=== PATIENT | male | born 1985 | race African-American/Black ===

== ENCOUNTER 2018-09-25 13:52 | Emergency (ER) | payer SELFPAY ==
[~2018-09-25] VITALS: Ht 190.5 cm; Wt 106.6 kg
--- NOTE | 2018-09-25 14:53 | NUR ---
Patient discharged to home in stable condition. Written and verbal after care instructions given. Patient verbalizes understanding of instruction.
== END 2018-09-25 15:01 | disposition home or self-care (01) ==
LOC: ER 14:04
DX: J06.9 Acute upper respiratory infection, unspecified (principal); J30.9 Allergic rhinitis, unspecified; F17.200 Nicotine dependence, unspecified, uncomplicated; F12.90 Cannabis use, unspecified, uncomplicated
CPT/HCPCS: Z7502

== ENCOUNTER 2019-07-23 12:32 | Emergency (ER) | payer SELFPAY ==
[~2019-07-23] VITALS: Ht 190.5 cm; Wt 108.9 kg
[2019-07-23 12:38] VITALS: BP 147/89
--- NOTE | 2019-07-23 13:16 | NUR ---
Patient discharged to home in stable condition. Written and verbal after care instructions given. Patient verbalizes understanding of instruction.
== END 2019-07-23 13:16 | disposition home or self-care (01) ==
LOC: ER 12:34
DX: J06.9 Acute upper respiratory infection, unspecified (principal); F17.200 Nicotine dependence, unspecified, uncomplicated

== ENCOUNTER 2019-09-24 12:52 | Emergency (ER) | payer SELFPAY ==
[~2019-09-24] VITALS: Ht 190.5 cm; Wt 102.1 kg
[2019-09-24 12:58] VITALS: BP 129/89
[2019-09-24] MEDS ORDERED: FLUORESCEIN SODIUM OPHTH 1 EA STRIP ONE (13:06)
== END 2019-09-24 14:03 | disposition home or self-care (01) ==
LOC: ER 12:55
DX: H11.32 Conjunctival hemorrhage, left eye (principal)

== ENCOUNTER 2022-02-18 15:21 | Emergency (ER) | payer MEDICAID ==
--- NOTE | 2022-02-18 15:40 | NUR ---
called for triage not in the waiting room.
--- NOTE | 2022-02-18 15:50 | NUR ---
called for triage not in the waiting room.
--- NOTE | 2022-02-18 16:01 | NUR ---
called for triage not in the waiting room
[2022-02-18] MEDS ORDERED: MUPI22OI2 TP (20:13)
[2022-02-18] MEDS ORDERED: DIPH25CA83 PO (20:13)
== END 2022-02-18 16:04 | disposition left against medical advice (07) ==
LOC: ER 15:23
DX: Z53.21 Procedure and treatment not carried out due to patient leaving prior to being seen by health care provider (principal)

== ENCOUNTER 2022-02-18 19:03 | Emergency (ER) | payer MEDICAID ==
[~2022-02-18] VITALS: Ht 188 cm; Wt 111.1 kg
[2022-02-18 19:10] VITALS: BP 152/73
[2022-02-18] MEDS ORDERED: diphenhydrAMINE HCL 25 MG CAPSULE PO ONE (20:00)
[2022-02-18] MEDS ORDERED: diphenhydrAMINE HCL 25 MG CAPSULE ONE (20:02)
[2022-02-18] MEDS ORDERED: DIPH25CA83 PO (20:13)
[2022-02-18] MEDS ORDERED: MUPI22OI2 TP (20:13)
--- NOTE | 2022-02-18 20:25 | NUR ---
MONKEY POPX SWAB DONE AND SENT TO LAB
--- NOTE | 2022-02-18 20:26 | NUR ---
Patient discharged to home in stable condition. Written and verbal after care instructions given. Patient verbalizes understanding of instruction. Pt ambulatory with a steady gait
== END 2022-02-18 20:27 | disposition home or self-care (01) ==
LOC: ER 19:06
DX: R21 Rash and other nonspecific skin eruption (principal)
CPT/HCPCS: 99283; Q0163

== ENCOUNTER 2022-02-20 13:17 | Emergency (ER) | payer MEDICAID ==
[~2022-02-20] VITALS: Ht 177.8 cm; Wt 90.7 kg
[~2022-02-20 13:17] MED LIST: DIPH25CA83 PO; MUPI22OI2 TP
[2022-02-20 13:32] VITALS: BP 129/71
--- NOTE | 2022-02-20 14:34 | NUR ---
MONKEYPOX SWAB SPECIMEN HANDED TO [facility] SENT TO LAB.
== END 2022-02-20 15:19 | disposition home or self-care (01) ==
LOC: ER 13:19
DX: Z00.00 Encounter for general adult medical examination without abnormal findings (principal)

== ENCOUNTER 2023-01-30 18:33 | Emergency (ER) | payer MEDICAID, OTHER ==
[~2023-01-30] VITALS: Ht 190.5 cm; Wt 113.4 kg
[~2023-01-30 18:33] MED LIST changes: -DIPH25CA83 PO
[2023-01-30 19:20] LABS: BASOPHILS # (AUTO) 0.1 K/uL (0.0-0.2); BASOPHILS % (AUTO) 0.8 % (0.0-2.0); EOSINOPHILS % (AUTO) 0.3 % (0.0-6.0); HEMATOCRIT 41 % (39-51); HEMOGLOBIN 13.3 g/dL (13.5-17.5); LYMPHOCYTES # (AUTO) 1.8 K/uL (0.8-4.8); MEAN CORPUSCULAR HGB CONC 33 g/dl (31.0-36.0); MEAN CORPUSCULAR VOLUME 85 fL (80-96); MONOCYTES # (AUTO) 0.5 K/uL (0.1-1.30); MONOCYTES % (AUTO) 6.1 % (2.0-12.0); NEUTROPHILS # (AUTO) 6.1 K/uL (1.8-8.9); NEUTROPHILS % (AUTO) 71.8 % (43.0-81.0); PLATELET COUNT (AUTO) 215 K/uL (150-450); RED BLOOD CELL COUNT(AUTO) 4.79 MIL/uL (4.5-6.0); WHITE BLOOD COUNT (AUTO) 8.5 K/uL (4.3-11.0)
[2023-01-30 19:27] LABS: BILIRUBIN,URINE NEGATIVE (NEGATIVE); COLOR,URINE YELLOW (YELLOW); LEUKOCYTE ESTERASE ,URINE 1+ (NEGATIVE); NITRITE, URINE NEGATIVE (NEGATIVE); PROTEIN,URINE TRACE mg/dl (NEGATIVE); UGLUCOSE NEGATIVE (NEGATIVE)
[2023-01-30 19:36] LABS: CALCIUM, SERUM 8.5 mg/dL (8.5-10.1); CREATININE 1.2 mg/dL (0.6-1.3); POTASSIUM 3.7 mmol/L (3.5-5.1)
[2023-01-30 19:40] LABS: BACTERIA,URINE 1+ /HPF (None Seen); MUCUS,URINE Few /LPF (None Seen); RBC,URINE 21-50 /HPF (0-2)
[2023-01-30 19:43] LABS: ALBUMIN 3.3 g/dL (3.4-5.0); BILIRUBIN,DIRECT 0.1 mg/dL (0.0-0.2); BILIRUBIN,TOTAL 0.4 mg/dL (0.2-1.0); TOTAL PROTEIN, SERUM 6.7 g/dL (6.4-8.2)
[2023-01-30] MEDS ORDERED: CEFTRIAXONE 500 MG VIAL ONE (21:07)
[2023-01-30] MEDS ORDERED: LIDOCAINE /MPF 1% VIAL 5 ML VIAL ONE (21:11)
[2023-01-30] MEDS: CEFTRIAXONE 500 MG VIAL IM ONE (21:15)
[2023-01-30] MEDS ORDERED: DOXY100C2 PO (21:43)
[2023-01-30 21:56] VITALS: BP 136/81; TEMP 98.3; O2SAT 99
== END 2023-01-30 21:57 | disposition home or self-care (01) ==
LOC: ER 18:40
DX: R10.30 Lower abdominal pain, unspecified (principal); F17.200 Nicotine dependence, unspecified, uncomplicated
CPT/HCPCS: 36415; 80048-TC; 80076-TC; 81001; 85025-TC; 87086-TC; 87491; 87591; J0696; J3490

== ENCOUNTER 2025-03-13 11:38 | Emergency (ER) | payer SELFPAY ==
[~2025-03-13] VITALS: Ht 190.5 cm; Wt 117.9 kg
[~2025-03-13 11:38] MED LIST changes: +DOXY100C2 PO
[2025-03-13 11:42] VITALS: BP 139/80; TEMP 98.3
[2025-03-13] MEDS ORDERED: AMOX-430 PO (13:51)
[2025-03-13] MEDS ORDERED: CHLO473M5 PO (13:52)
[2025-03-13 13:58] VITALS: O2SAT 98
== END 2025-03-13 13:59 | disposition home or self-care (01) ==
LOC: ER 11:43
DX: J02.9 Acute pharyngitis, unspecified (principal); H92.03 Otalgia, bilateral; F17.200 Nicotine dependence, unspecified, uncomplicated; Z20.822 Contact with and (suspected) exposure to COVID-19
CPT/HCPCS: 86403-TC; 87070-TC